=== PATIENT | female | born 1940 | race Caucasian/White ===

== ENCOUNTER 2017-01-29 16:28 | Emergency (ER) | payer OTHER ==
[~2017-01-29] VITALS: Ht 154.9 cm; Wt 53.6 kg
[2017-01-29 16:41] VITALS: TEMP 36.8; Ht 154.9 cm; Wt 53.6 kg
[2017-01-29] MEDS ORDERED: OMEP20TA40 PO (17:46)
[2017-01-29] MEDS ORDERED: ANTIDEPRESSANT (17:46)
[2017-01-29] MEDS ORDERED: ZOLP5TAB PO (17:46)
[2017-01-29] MEDS ORDERED: SODIUM CHLORIDE 0.9% 500ML 500 ML IV STA (18:05)
[2017-01-29 18:27] LABS: BASO % 0.5 %; BASO ABS # 0.03 K/uL (0-0.2); COMPLETE YES; EOS % 2.6 %; HEMATOCRIT 35.2 % (37-47); IG% 0.2 %; LYMPH % 39.9 %; MEAN CELL VOLUME 84.4 fL (80-100); MEAN CORPUSCULAR HEMOGLOBIN 28.3 pg (25-34); MEAN CORPUSCULAR HGB CONC 33.5 g/dl (32-36); MEAN PLATELET VOLUME 9.2 fL (7.4-10.4); MONO % 8.6 %; NEUT % 48.2 %; PLATELET COUNT 305 K/uL (130-400); RED BLOOD COUNT 4.17 M/uL (4.2-5.4); WHITE BLOOD COUNT 6.26 K/uL (4.8-10.8)
[2017-01-29 18:39] LABS: URINE APPEARANCE CLEAR (CLEAR); URINE BILIRUBIN NEG (NEG); URINE COLOR YELLOW; URINE NITRITE NEG (NEG); URINE SPECIFIC GRAVITY 1.005 (1.000-1.030); UROBILINOGEN NEG (NEG); ZZUR CULT IF INDIC CLEAN CATCH NO
[2017-01-29 18:42] LABS: MANUAL MICROSCOPIC REQUIRED? NO; REVIEW REQ? NO
[2017-01-29 18:50] LABS: ALT/SGPT 20 U/L (12-78); AST/SGOT 19 U/L (15-37); BLOOD UREA NITROGEN 12 mg/dl (7-18); CALCIUM 8.9 mg/dl (8.5-10.1); CARBON DIOXIDE 29 mmol/L (21-32); CHLORIDE 103 mmol/L (98-107); CREATININE 0.83 mg/dl (0.60-1.20); GLUCOSE 79 mg/dl (70-99); POTASSIUM 3.9 mmol/L (3.5-5.1); SODIUM 138 mmol/L (136-145)
[2017-01-29 18:52] LABS: ALKALINE PHOSPHATASE 70 U/L (45-117)
--- NOTE | 2017-01-29 19:08 | DIAGNOSTIC IMAGING REPORT ---
CT OF THE ABDOMEN AND PELVIS WITHOUT CONTRAST, STONE PROTOCOL CLINICAL HISTORY: Right flank pain. COMPARISON STUDY: None. TECHNIQUE: Helical axial images of the abdomen and pelvis were obtained without IV or oral contrast according to renal stone protocol. FINDINGS: Visualized portions of the lower chest demonstrate several small subpleural nodules, including a 5 mm left lower lobe nodule shown image 19 of 164 and an 8 mm right lower lobe nodule shown on image 8. There is a moderate sized hiatal hernia. 2 mm calculus within the lower pole of the right kidney is noted. There are no ureteral calculi. There is no hydronephrosis. Evaluation of the remainder of the abdomen and pelvis is suboptimal on this unenhanced exam. The liver, spleen, adrenal glands and pancreas are unremarkable on this unenhanced exam. There is no evidence for a bowel obstruction. The appendix is not visualized but there is no right lower quadrant inflammation. There is no lymphadenopathy. This extensive sigmoid diverticulosis without evidence for acute diverticulitis. No suspicious skeletal lesions are identified. IMPRESSION: 1. 2 mm right renal calculus. No ureteral calculi or hydronephrosis. 2. Sigmoid diverticulosis without evidence for acute diverticulitis. 3. Several subpleural nodules within the lower lungs which are likely benign but a follow-up chest CT in 6 months to ensure stability is recommended. 4. Moderate sized hiatal hernia. Electronically signed by: Moises Leija M.D. 01/29/2017 7:07 PM Dictated Date/Time: 01/29/2017 7:01 PM
--- NOTE | 2017-01-29 19:34 | EMERGENCY ROOM VISIT NOTE ---
History Report prepared by Aakash: Tessie Kaufman Under the Supervision of: Dr. Nabil Medeiros M.D. First contact with patient: 17:33 Chief Complaint: FLANK PAIN Stated Complaint: R FLANK PAIN TO LOWER R ABD History of Present Illness The patient is a 76 year old female who presents to the Emergency Room with complaints of right flank pain beginning this morning. She has a history of pyelonephritis. She states that her pain radiates into her right abdomen. The patient notes that she has been having intermittent episodes of lightheadedness recently. She denies any nausea, vomiting, or diarrhea. Source of History: patient Onset: This morning Position: other (right flank) Timing: constant Associated Symptoms: + abdominal pain, No diarrhea, No nausea, No vomiting Note: The patient also complains of intermittent lightheadedness. Review of Systems See HPI for pertinent positives & negatives. A total of 10 systems reviewed and were otherwise negative. Past Medical & Surgical Medical Problems: (1) Breast cancer Surgical Problems: (1) H/O lumpectomy Family History No pertinent family history stated. Social History Smoking Status: Never Smoker Current/Historical Medications Scheduled Omeprazole ([facility] Omeprazole), Unknown Dose PO DAILY Zolpidem Tartrate (Ambien), Unknown Dose PO HS Miscellaneous Medications [Antidepressant] Allergies Coded Allergies: No Known Allergies (Unverified , 01/29/17) Physical Exam Vital Signs Date Time Temp Pulse Resp B/P Pulse Ox O2 Delivery O2 Flow Rate FiO2 01/29/17 19:38 60 18 147/86 99 01/29/17 18:26 58 18 149/86 100 Room Air 01/29/17 16:41 36.8 63 18 178/80 100 Room Air Physical Exam GENERAL: Patient is a healthy-appearing well-nourished HEAD: Normocephalic atraumatic EYES: Ocular movements intact pupils equal and react to light OROPHARYNX mucous membranes are moist no exudates present no erythema or edema present NECK: Supple no nuchal rigidity CHEST: Good equal expansion LUNGS: Clear and equal to auscultation CARDIAC: Normal S1 and S2 ABDOMEN: Soft nontender no guarding BACK: No CVA tenderness EXTREMITIES: No pain upon palpation normal muscle strength in all groups no clubbing cyanosis or edema NEURO: Patient is following commands is answering questions appropriately. Alert and oriented x3 Cranial Nerves 2-12 grossly intact Medical Decision & Procedures ER Provider Diagnostic Interpretation: CT results as stated below per my review and radiologist interpretation: CT OF THE ABDOMEN AND PELVIS WITHOUT CONTRAST, STONE PROTOCOL FINDINGS: Visualized portions of the lower chest demonstrate several small subpleural nodules, including a 5 mm left lower lobe nodule shown image 19 of 164 and an 8 mm right lower lobe nodule shown on image 8. There is a moderate sized hiatal hernia. 2 mm calculus within the lower pole of the right kidney is noted. There are no ureteral calculi. There is no hydronephrosis. Evaluation of the remainder of the abdomen and pelvis is suboptimal on this unenhanced exam. The liver, spleen, adrenal glands and pancreas are unremarkable on this unenhanced exam. There is no evidence for a bowel obstruction. The appendix is not visualized but there is no right lower quadrant inflammation. There is no lymphadenopathy. This extensive sigmoid diverticulosis without evidence for acute diverticulitis. No suspicious skeletal lesions are identified. IMPRESSION: 1. 2 mm right renal calculus. No ureteral calculi or hydronephrosis. 2. Sigmoid diverticulosis without evidence for acute diverticulitis. 3. Several subpleural nodules within the lower lungs which are likely benign but a follow-up chest CT in 6 months to ensure stability is recommended. 4. Moderate sized hiatal hernia. Electronically signed by: Moises Leija M.D. Laboratory Results 01/29/17 18:16 Red Blood Count 4.17, Mean Corpuscular Volume 84.4, Mean Corpuscular Hemoglobin 28.3, Mean Corpuscular Hemoglobin Concent 33.5, Mean Platelet Volume 9.2, Neutrophils (%) (Auto) 48.2, Lymphocytes (%) (Auto) 39.9, Monocytes (%) (Auto) 8.6, Eosinophils (%) (Auto) 2.6, Basophils (%) (Auto) 0.5, Neutrophils # (Auto) 3.02, Lymphocytes # (Auto) 2.50, Monocytes # (Auto) 0.54, Eosinophils # (Auto) 0.16, Basophils # (Auto) 0.03 01/29/17 18:16 Test 01/29/17 18:16 White Blood Count 6.26 K/uL (4.8-10.8) Red Blood Count 4.17 M/uL (4.2-5.4) Hemoglobin 11.8 g/dL (12.0-16.0) Hematocrit 35.2 % (37-47) Mean Corpuscular Volume 84.4 fL (80-100) Mean Corpuscular Hemoglobin 28.3 pg (25-34) Mean Corpuscular Hemoglobin Concent 33.5 g/dl (32-36) Platelet Count 305 K/uL (130-400) Mean Platelet Volume 9.2 fL (7.4-10.4) Neutrophils (%) (Auto) 48.2 % Lymphocytes (%) (Auto) 39.9 % Monocytes (%) (Auto) 8.6 % Eosinophils (%) (Auto) 2.6 % Basophils (%) (Auto) 0.5 % Neutrophils # (Auto) 3.02 K/uL (1.4-6.5) Lymphocytes # (Auto) 2.50 K/uL (1.2-3.4) Monocytes # (Auto) 0.54 K/uL (0.11-0.59) Eosinophils # (Auto) 0.16 K/uL (0-0.5) Basophils # (Auto) 0.03 K/uL (0-0.2) RDW Standard Deviation 45.9 fL (36.4-46.3) RDW Coefficient of Variation 14.8 % (11.5-14.5) Immature Granulocyte % (Auto) 0.2 % Immature Granulocyte # (Auto) 0.01 K/uL (0.00-0.02) Urine Color YELLOW Urine Appearance CLEAR (CLEAR) Urine pH 7.0 (4.5-7.5) Urine Specific [place] 1.005 (1.000-1.030) Urine Protein NEG (NEG) Urine Glucose (UA) NEG (NEG) Urine Ketones NEG (NEG) Urine Occult Blood NEG (NEG) Urine Nitrite NEG (NEG) Urine Bilirubin NEG (NEG) Urine Urobilinogen NEG (NEG) Urine Leukocyte Esterase NEG (NEG) Anion Gap 6.0 mmol/L (3-11) Est Creatinine Clear Calc Drug Dose 44.2 ml/min Estimated GFR () 79.9 Estimated GFR (Non- 69.0 BUN/Creatinine Ratio 15.0 (10-20) Calcium Level 8.9 mg/dl (8.5-10.1) Total Bilirubin 0.4 mg/dl (0.2-1) Direct Bilirubin < 0.1 mg/dl (0-0.2) Aspartate Amino Transf (AST/SGOT) 19 U/L (15-37) Alanine Aminotransferase (ALT/SGPT) 20 U/L (12-78) Alkaline Phosphatase 70 U/L (45-117) Total Protein 7.4 gm/dl (6.4-8.2) Albumin 4.0 gm/dl (3.4-5.0) Lipase 166 U/L (73-393) Labs reviewed by ED physician. Medications Administered Medications (Trade) Dose Ordered Sig/Luis Route Start Time Stop Time Status Last Admin Dose Admin Sodium Chloride (Nss 500ml) 500 ml @ 999 mls/hr Q31M STAT IV 01/29/17 18:05 01/29/17 18:35 DC 01/29/17 18:39 999 MLS/HR ED Course 1800: Past medical records reviewed. The patient was evaluated in room C1A. A complete history and physical examination was performed. 1805: Ordered Sodium Chloride 500 ml @ 999 mls/hr. 1920: Upon reexamination the patient is resting comfortably. I discussed results and treatment plan with the patient. She verbalizes agreement and understanding. The patient is ready for discharge. Medical Decision Differential diagnosis: Etiologies such as appendicitis, diverticulitis, PUD, biliary pathology, UTI, pancreatitis, obstruction, mesenteric ischemia, aortic pathology, infections, inflammatory bowel disease, renal colic, as well as others were entertained. Blood Pressure Screening: Patient was found to have an elevated blood pressure and was referred to their primary care doctor for recheck and further treatment Medication Reconciliation: I attest that I have personally reviewed the patient' s current medication list This is a 76-year-old female who presents emergency department complaining of right-sided flank pain. Serial abdominal examinations were performed on the patient in the emergency department and at no time did the patient exhibited a surgical abdomen. In addition the patient did not exhibit abdominal tenderness. She does not have an elevation in her white blood count, she has a normal renal profile, she has a normal liver profile, she has a normal lipase. In addition the patient also has a normal urine. The patient was sent for CAT scan of the abdomen pelvis which did show a 2 mm renal stone. I do believe based on this that the patient may have passed a very small stone. I also went over the patient's lung nodules and stressed the need for follow-up in a proximally 6 months.. I do believe that the patient as well as to be discharged home. Patient and daughter were in agreement with the treatment plan. Impression Primary Impression: Right flank pain Scribe Attestation The scribe's documentation has been prepared under my direction and personally reviewed by me in its entirety. I confirm that the note above accurately reflects all work, treatment, procedures, and medical decision making performed by me. Departure Information Dispostion Home / Self-Care Referrals No Doctor, Assigned (PCP) Forms HOME CARE DOCUMENTATION FORM, IMPORTANT VISIT INFORMATION Patient Instructions ED Flank Pain Uncertain Cause, ED Nodule Solitary Pulmonary, Hypertension Dc, My [facility] Additional Instructions You were found to have an elevated blood pressure today (>120 sytolic or >90 diastolic). Per medicare guidelines, you need to follow up with this blood pressure screening with your Primary Care Physician (PCP). For a new PCP call [phone]. Need follow up for lung cysts in 6 months Culture results are usually available in approx 48 hours You have been examined and treated today on an emergency basis only. This is not a substitute for, or an effort to provide, complete comprehensive medical care. It is impossible to recognize and treat all injuries or illnesses in a single emergency department visit. It is therefore important that you follow up closely with your PCP. Call as soon as possible for an appointment. Thank you for your time and consideration. I look forward to speaking with you again soon. Please don't hesitate to call us if you have any questions.
[2017-01-29 19:38] VITALS: BP 147/86; PULSE 60; O2SAT 99
== END 2017-01-29 19:39 | disposition home or self-care (01) ==
LOC: C.EDB 16:31 → C.EDC 19:39
DX: R10.30 Lower abdominal pain, unspecified (principal); Z85.3 Personal history of malignant neoplasm of breast; Z79.899 Other long term (current) drug therapy; R91.8 Other nonspecific abnormal finding of lung field